=== PATIENT | female | born 1950 | race Caucasian/White ===

== ENCOUNTER 2019-05-17 06:23 | Day surgery (SDC) | payer MEDICARE ==
[2019-05-17] MEDS ORDERED: Sodium Chloride 0.9% 1,000 ML IV SCH (07:00)
[2019-05-17] MEDS ORDERED: fentaNYL 100 MCG/2 ML SDV ONE (07:24)
[2019-05-17] MEDS ORDERED: Midazolam 1 MG/ML 2 ML SDV ONE (07:24)
[2019-05-17] MEDS ORDERED: Propofol 200 MG/20 ML SDV ONE (07:24)
[2019-05-17 09:25] VITALS: BP 95/58; PULSE 75
--- NOTE | 2019-05-17 10:45 | OR ---
DATE OF PROCEDURE: 05/17/2019 SURGEON: Epi Valles MD PROCEDURE: Colonoscopy. FINDINGS: 1. Sigmoid colon polyp, approximately 1 cm, pedunculated, completely removed using snare, in the sigmoid colon at approximately 20 cm. 2. Diverticulosis, mild, throughout entire colon, but mostly concentrated in the sigmoid colon. 3. External hemorrhoid tags. COMPLICATIONS: None. INFORMATION SYSTEMS SECURITY OFFICER: None. PREOPERATIVE DIAGNOSIS: Positive fecal immunochemical test POSTOPERATIVE DIAGNOSIS: Positive fecal immunochemical test RISKS: Risks, benefits, alternatives, and limitations including, but not limited to infection, bleeding, and perforation were explained to the patient and wished to proceed. PROCEDURE IN DETAIL: The patient was placed in the left lateral decubitus position. Digital rectal exam was performed without abnormality. Scope was brought back through the ascending, transverse, descending colon, and retroflexed. The aforementioned polyp was identified and completely removed. No evidence of old or new blood. No abnormal bleeding after snare removal. No abnormalities on retroflexion. The patient tolerated the procedure well. Epi Valles MD /[id number]
== END 2019-05-17 09:28 | disposition home or self-care (01) ==
LOC: JP.SDS 06:23
PROVIDERS: ATTEND Surgery
DX: K57.31 Diverticulosis of large intestine without perforation or abscess with bleeding (principal); K51.40 Inflammatory polyps of colon without complications; K64.4 Residual hemorrhoidal skin tags; K21.9 Gastro-esophageal reflux disease without esophagitis; I10 Essential (primary) hypertension
CPT/HCPCS: 45385; J2250; J2704; J3010; J7030; 88305

== ENCOUNTER 2024-11-30 06:40 | Day surgery (SDC) | payer MEDICARE ==
[2024-11-30] MEDS ORDERED: Propofol 200 MG/20 ML SDV ONE (07:21)
[2024-11-30] MEDS ORDERED: fentaNYL 100 MCG/2 ML SDV ONE (07:22)
[2024-11-30] MEDS: Lactated Ringers 1,000 ML IV SCH (07:53)
[2024-11-30 09:33] VITALS: BP 117/65; PULSE 70
== END 2024-11-30 09:45 | disposition home or self-care (01) ==
LOC: JP.SDS 06:40
PROVIDERS: ATTEND Surgery
DX: K64.8 Other hemorrhoids (principal); K57.31 Diverticulosis of large intestine without perforation or abscess with bleeding; I10 Essential (primary) hypertension; E66.9 Obesity, unspecified
CPT/HCPCS: 00811; 45398; J2704; J3010; J7120